=== PATIENT | female | born 1975 | race Asian ===

== ENCOUNTER 2017-06-04 22:49 | Emergency (ER) | payer MEDICAID ==
[2017-06-04 22:58] VITALS: BP 130/94
[2017-06-04 23:54] LABS: BASOPHIL % 0.5 % (0-2); PLATELET COUNT 499 x10^3mcL (130-400); RED CELL DISTRIBUTION WIDTH 15.9 % (11.5-14.5)
[2017-06-05 00:11] LABS: ALKALINE PHOSPHATASE 138 U/L (46-116); ALT/SGPT 42 U/L (14-59); AST/SGOT 67 U/L (15-37); BILIRUBIN TOTAL 0.2 mg/dL (0.20-1.00); CALCIUM 8.3 mg/dL (8.5-10.1); CARBON DIOXIDE 25.2 mmol/L (21-32); CHLORIDE SERUM 111 mmol/L (98-107); CREATININE SERUM 0.6 mg/dL (0.6-1.0); GFR1 > 60 mL/min; GLUCOSE SERUM 119 mg/dL (74-106); POTASSIUM SERUM 3.1 mmol/L (3.5-5.1); SODIUM SERUM 148 mmol/L (136-145); TOTAL PROTEIN, SERUM 7.8 g/dL (6.4-8.2)
== END 2017-06-05 01:09 | disposition left against medical advice (07) ==
LOC: ED 22:49 → DU 23:56
PROVIDERS: Emergency Medicine
DX: R91.8 Other nonspecific abnormal finding of lung field (principal); R06.02 Shortness of breath
CPT/HCPCS: 83880; 85378; J1956; Q0092